=== PATIENT | female | born 1995 | race Caucasian/White ===

== ENCOUNTER 2021-02-21 10:16 | Emergency (ER) | payer OTHER, SELFPAY ==
[2021-02-21 11:00] VITALS: BP 145/84; PULSE 94; RESP 18; TEMP 36.7; O2SAT 98; BMI 29.2
[2021-02-21 11:56] VITALS: BP 133/80; PULSE 108; RESP 18; O2SAT 100
--- NOTE | 2021-02-21 11:57 | ED_ITS ---
HPI - Female Genitourinary General Chief complaint: Vaginal Bleeding Stated complaint: 5 wks preg vaginal bleeding Time Seen by Provider: 02/21/21 11:51 History of Present Illness HPI Narrative: Patient is a 25-year-old white female presented today with having vaginal bleeding. She describes it as spotting. Unsure of her blood type. Patient's last menstrual period started January 17. Tested home test positive. No coughing or congestion or upper respiratory symptoms. No other vaginal discharge. Patient is sexually active. No abdominal pain. Never had an ectopic in the past. Patient is from home. No ultrasound for this . Related Data Allergies Allergy/AdvReac Type Severity Reaction Status Date / Time No Known Allergies Allergy Verified 02/21/21 11:52 Review of Systems Review of Systems: No fever no chills no chest pain or shortness of breath no diaphoresis No rectal bleeding All system reviewed otherwise negative [facility] Past Medical History Attestation statement: The following information was validated with the patient. Social History Social History Alcohol intake: never Patient Tobacco Use Status: Never used Tobacco Use of substances other than those prescribed or required for medical reasons: No Advance Directives: No Advance Directives Information Provided: No Physical Exam Vital Signs: Vital Signs: Last Vital Signs Temp 98.1 F 02/21/21 11:00 Pulse 108 H 02/21/21 11:56 Resp 18 02/21/21 11:56 BP 133/80 02/21/21 11:56 Pulse Ox 100 02/21/21 11:56 BMI result Body Mass Index 29.2 Appearance: Alert. Oriented X3. No acute distress. Eyes: Pupils equal, round and reactive to light. ENT: Pharynx normal. Neck: Normal inspection. Neck supple. No lymph nodes noted. No crepitus CVS: Normal heart rate and rhythm. Pulses normal. Normal S1 and S2 Respiratory: No respiratory distress. Breath sounds normal. No Wheezing. No rales Abdomen: Soft and nontender. No rigidity. No distention. good BS x4 Skin: Skin warm and dry. Normal skin color. Normal skin turgor. Extremities: No lower extremity edema. Neurovascular intact to all extremities. No Lacerations. No Rash Neuro: Oriented X 3. No motor deficit. No sensory deficit. Moving all exterm ities. No slurred speech MDM - Female Genitourinary MDM Narrative Medical decision making narrative: Patient's blood type is O positive. Quantitative hCG is in the 40s. Question if patient has threatened maybe versus ectopic versus miscarriage. Will get a repeat quant in 2 days. Will contact POLICE DETENTION ATTENDANT for close follow-up. Patient is in stable condition. Case discussed with Dr. Pascale Ko from OBGYN. Will follow-up with patient closely on Thursday. Agree with plan. Stable condition. Medical Records Attestation: I reviewed the patient's medical records. Lab Data Attestation: I reviewed the patient's lab results. Result diagrams: 02/21/21 12:02/21/21 12: Labs: Lab Results 02/21/21 02/21/21 02/21/21 Range/Units 12:14 12:29 12:29 WBC 6.3 (4.8-10.8) X10*3/uL RBC 5.12 (4.20-5.50) X10*6/uL Hgb 12.3 (12.0-16.0) g/dl Hct 39.7 (37.0-47.0) % MCV 77.5 L (80.0-98.0) fL MCH 24.0 L (27.0-33.0) pg MCHC 31.0 (31.0-35.0) g/dl RDW 15.4 (11.0-16.0) % Plt Count 320 (160-400) X10*3/uL MPV 9.8 (9.4-12.3) fL Immature Gran % (Auto) 0.3 (0.0-0.4) % Neut % (Auto) 64.4 (45-73) % Lymph % (Auto) 25.4 (20-40) % [place] % (Auto) 7.0 (2-11) % Eos % (Auto) 2.6 (0-4) % Baso % (Auto) 0.3 (0-2) % Lymph # (Auto) 1.6 (1.2-4.9) X10*3/uL [place] # (Auto) 0.4 (0.1-1.2) X10*3/uL Eos # (Auto) 0.2 (0.0-0.4) X10*3/uL Baso # (Auto) 0.0 (0.0-0.2) X10*3/uL Abs Immat Gran (auto) 0.02 (0.00-0.03) X10*3/uL Absolute Neuts (auto) 4.0 (2.0-8.3) x10*3/uL Absolute Nucleated RBC 0.000 (0.0-0.012) X10*3/uL Nucleated RBC % (auto) 0.0 (0.0-0.2) /100WBC Sodium 138 (135-145) mmol/L Potassium 4.5 (3.3-5.1) mmol/L Chloride 105 (96-108) mmol/L Carbon Dioxide 23 (22-29) mmol/L Anion Gap 15 (12-20) BUN 9 (9-16) mg/dL Creatinine 0.72 (0.5-1.4) mg/dL Estim Creat Clear Calc 116.7 Estimated GFR > 60 Random Glucose 82 (60-115) mg/dL Calcium 9.7 (8.4-10.2) mg/dL Total Bilirubin 0.3 (0.0-1.0) mg/dL AST 18 (5-31) U/L ALT 12 (0-31) U/L Alkaline Phosphatase 93 (39-117) U/L Total Protein 7.8 (6.5-8.0) g/dL Albumin 4.5 (3.5-5.0) g/dL Beta HCG, Quant mIU/mL Urine Color YELLOW Urine Appearance CLEAR Urine pH 7.5 (5.0-8.0) Ur Specific [place] 1.010 (1.005-1.025) Urine Protein NEG (NEG-TRACE) MG/DL Urine Glucose (UA) NEG (NEG) MG/DL Urine Ketones NEG (NEG) MG/DL Urine Blood NEG (NEG) Urine Nitrite NEG (NEG) Ur Leukocyte Esterase NEG (NEG) Blood Type 02/21/21 02/21/21 Range/Units 12:29 12:29 WBC (4.8-10.8) X10*3/uL RBC (4.20-5.50) X10*6/uL Hgb (12.0-16.0) g/dl Hct (37.0-47.0) % MCV (80.0-98.0) fL MCH (27.0-33.0) pg MCHC (31.0-35.0) g/dl RDW (11.0-16.0) % Plt Count (160-400) X10*3/uL MPV (9.4-12.3) fL Immature Gran % (Auto) (0.0-0.4) % Neut % (Auto) (45-73) % Lymph % (Auto) (20-40) % [place] % (Auto) (2-11) % Eos % (Auto) (0-4) % Baso % (Auto) (0-2) % Lymph # (Auto) (1.2-4.9) X10*3/uL [place] # (Auto) (0.1-1.2) X10*3/uL Eos # (Auto) (0.0-0.4) X10*3/uL Baso # (Auto) (0.0-0.2) X10*3/uL Abs Immat Gran (auto) (0.00-0.03) X10*3/uL Absolute Neuts (auto) (2.0-8.3) x10*3/uL Absolute Nucleated RBC (0.0-0.012) X10*3/uL Nucleated RBC % (auto) (0.0-0.2) /100WBC Sodium (135-145) mmol/L Potassium (3.3-5.1) mmol/L Chloride (96-108) mmol/L Carbon Dioxide (22-29) mmol/L Anion Gap (12-20) BUN (9-16) mg/dL Creatinine (0.5-1.4) mg/dL Estim Creat Clear Calc Estimated GFR Random Glucose (60-115) mg/dL Calcium (8.4-10.2) mg/dL Total Bilirubin (0.0-1.0) mg/dL AST (5-31) U/L ALT (0-31) U/L Alkaline Phosphatase (39-117) U/L Total Protein (6.5-8.0) g/dL Albumin (3.5-5.0) g/dL Beta HCG, Quant 46 mIU/mL Urine Color Urine Appearance Urine pH (5.0-8.0) Ur Specific [place] (1.005-1.025) Urine Protein (NEG-TRACE) MG/DL Urine Glucose (UA) (NEG) MG/DL Urine Ketones (NEG) MG/DL Urine Blood (NEG) Urine Nitrite (NEG) Ur Leukocyte Esterase (NEG) Blood Type O Positive Discharge Plan Discharge Clinical Impression: Threatened Patient Disposition: Home, Self-Care Instructions: Threatened Miscarriage (ED) Additional Instructions: Risk of ectopic exists. Worsen pain return to the emergency department immediately. closely follow-up with OBGYN. No intercourse for now. Bed rest. Referrals: Wang Ashraf MD [Physician] - 2 days
[2021-02-21 12:22] LABS: Appearance Urine CLEAR; Color Urine YELLOW; Glucose Urine UA NEG (NEG); Leukocyte Esterase Urine NEG (NEG); Nitrite Urine NEG (NEG); PH 7.5 (5.0-8.0); Urine Blood NEG (NEG); Urine Ketones NEG (NEG); Urine Protein NEG (NEG-TRACE)
--- NOTE | 2021-02-21 12:32 | PC.NURSE ---
describes vag bleeding as, bright red to brown. spotting since yesterday. more with wiping. no abd cramping.
[2021-02-21 12:36] LABS: MANUAL DIFF FLAG NO
[2021-02-21 12:41] LABS: Basophils Percent Auto 0.3 % (0-2); Eosinophils Absolute Auto 0.2 X10*3/uL (0.0-0.4); Eosinophils Percent Auto 2.6 % (0-4); Hematocrit 39.7 % (37.0-47.0); Hemoglobin 12.3 g/dl (12.0-16.0); Imm Gran Abs Auto 0.02 X10*3/uL (0.00-0.03); Imm Gran Pct Auto 0.3 % (0.0-0.4); Lymphocytes Absolute Auto 1.6 X10*3/uL (1.2-4.9); Lymphocytes Percent Auto 25.4 % (20-40); Mean Corpuscular Volume 77.5 fL (80.0-98.0); Mean Platelet Volume 9.8 fL (9.4-12.3); Monocytes Absolute Auto 0.4 X10*3/uL (0.1-1.2); Neutrophils Percent Auto 64.4 % (45-73); Platelet Count 320 X10*3/uL (160-400); Red Blood Count 5.12 X10*6/uL (4.20-5.50); Red Cell Distribution Width 15.4 % (11.0-16.0); White Blood Count 6.3 X10*3/uL (4.8-10.8)
[2021-02-21 13:20] LABS: Alanine Aminotransferase 12 U/L (0-31); Albumin Level 4.5 g/dL (3.5-5.0); Alkaline Phosphatase 93 U/L (39-117); Anion Gap 15 (12-20); Aspartate Amino Transferase 18 U/L (5-31); Bilirubin Total 0.3 mg/dL (0.0-1.0); Blood Urea Nitrogen 9 mg/dL (9-16); Calcium 9.7 mg/dL (8.4-10.2); Carbon Dioxide 23 mmol/L (22-29); Chloride 105 mmol/L (96-108); Creatinine Clr Calc Pharmacy 116.7; Estimated Glomerular Filt Rate > 60; Glucose Random 82 mg/dL (60-115); Potassium 4.5 mmol/L (3.3-5.1); Sodium 138 mmol/L (135-145); Total Protein 7.8 g/dL (6.5-8.0)
[2021-02-21 13:25] LABS: HCG Quantitative 46 mIU/mL
[2021-02-21 14:00] VITALS: BP 127/76; PULSE 84; RESP 18; O2SAT 98
--- NOTE | 2021-02-21 14:12 | PM.GYNCN ---
FURNITURE P[employer]ER - CN: HPI Data of Consult Consult date: 02/21/21 Primary Care Provider: None Physician Consult Narrative Narrative: I was consulted on Jenise Bar who is a 25 year old female who presented emergency room with vaginal spotting. Abdominal pain patient states that she had positive urine test week ago. No other complaints . Rh positive. HCG done in the ER today was 46 cc:: CC: REAL ESTATE MANAGEMENT SPECIALIST - Review of Systems Review of Systems ROS Unobtainable: All systems reviewed & are unremarkable except as noted in HPI and below Cardiovascular: Denies Palpatations, Loss of consciousness or Chest pain Respiratory: Denies Cough, Wheezing or Shortness of breath Musculoskeletal: Denies Low back pain Gastrointestinal: Denies Heartburn, Constipation, Diarrhea, Nausea or Vomiting Genitourinary: Denies Pain with urination, Burning with urination or Urinary frequency Neurological: Denies Migranes Psychological: Denies Depression OB [facility] Social History Social History Alcohol intake: never Patient Tobacco Use Status: Never used Tobacco Use of substances other than those prescribed or required for medical reasons: No Advance Directives: No Advance Directives Information Provided: No Meds Allergies Allergy/AdvReac Type Severity Reaction Status Date / Time No Known Allergies Allergy Verified 02/21/21 11:52 FURNITURE P[employer]ER Physical Exam Vitals Vital signs: Temp Pulse Resp BP Pulse Ox 98.1 F 108 H 18 133/80 100 02/21/21 11:00 02/21/21 11:56 02/21/21 11:56 02/21/21 11:56 02/21/21 11:56 BMI result Body Mass Index 29.2 Constitutional General Appearance: Healthy appearing, Well-nourished and Well-developed Psychiatric Mood and Affect: active and alert, normal mood and normal affect Skin Appearance: No rashes and No lesions Lungs Respiratory Effort: No intercostal retractions Auscultation: Clear to auscultation Cardiovascular Auscultation: RRR Abdomen Auscultation/Inspection/Palpation: Normal bowel sounds, Soft, Non-distended and No tenderness Additional Comments: Exam reported by Dr. LICONA, benign nontender soft abdomen FURNITURE P[employer]ER - Results Labs CBC & Chem 7: 02/21/21 12:29 02/21/21 12:29 Labs: Short CBC 02/21/21 Range/Units 12:29 WBC 6.3 (4.8-10.8) X10*3/uL Hgb 12.3 (12.0-16.0) g/dl Hct 39.7 (37.0-47.0) % Plt Count 320 (160-400) X10*3/uL BMP 02/21/21 12:29 Sodium 138 Potassium 4.5 Chloride 105 Carbon Dioxide 23 BUN 9 Creatinine 0.72 Calcium 9.7 Liver Function 02/21/21 Range/Units 12:29 Total Bilirubin 0.3 (0.0-1.0) mg/dL AST 18 (5-31) U/L ALT 12 (0-31) U/L Alkaline Phosphatase 93 (39-117) U/L Albumin 4.5 (3.5-5.0) g/dL Urine 02/21/21 Range/Units 12:14 Urine Color YELLOW Urine Appearance CLEAR Urine pH 7.5 (5.0-8.0) Ur Specific [place] 1.010 (1.005-1.025) Urine Protein NEG (NEG-TRACE) MG/DL Urine Glucose (UA) NEG (NEG) MG/DL Assessment and Plan (1) Early stage of : Status: Acute Recommended hCG quantitative in 48 hours x2 days follow-up in 4 days in the office. Instructions to be given the patient to call or go to emergency room in case of abdominal/pelvic pain or heavy vaginal bleeding. I was consulted on the phone guarding this patient, did not nor examined her
[2021-02-21 15:00] LABS: UPreg QC Valid YES; Urine Pregnancy NEG (NEGATIVE)
== END 2021-02-21 15:04 | disposition home or self-care (01) ==
PROVIDERS: Emergency Provider Emergency Medicine Emergency Medical Services
DX: O20.0 Threatened abortion (principal); Z3A.00 Weeks of gestation of pregnancy not specified
CPT/HCPCS: 36415; 80053; 81003; 81025; 84702; 85025; 86900; 86901; 99283; 99284